=== PATIENT | male | born 1985 | race Caucasian/White ===

== ENCOUNTER 2023-11-03 07:34 | Outpatient (CLI) | payer OTHER ==
[2023-11-03] MEDS ORDERED: Iopamidol 370 76% 100 ML VIAL ONE (10:55)
== END 2023-11-03 07:35 | disposition home or self-care (01) ==
LOC: BICCT 07:34
PROVIDERS: ATTEND Family Medicine
DX: R10.30 Lower abdominal pain, unspecified (principal)
CPT/HCPCS: 74177; Q9967